=== PATIENT | male | born 1995 | race African-American/Black ===

== ENCOUNTER → 2018-07-02 | Outpatient (CLI) | payer OTHER | LOC: COL.RAD 13:36 | DX: F07.81 Postconcussional syndrome (principal) | CPT/HCPCS: A9585 ==

== ENCOUNTER → 2018-08-31 | Outpatient (CLI) | payer OTHER | LOC: COL.RAD 09:06 | DX: M75.81 Other shoulder lesions, right shoulder (principal) | CPT/HCPCS: A9585; Q9967 ==

== ENCOUNTER 2021-05-17 21:39 | Emergency (ER) | payer OTHER ==
[~2021-05-17] VITALS: Ht 182.9 cm; Wt 86.8 kg
[2021-05-17 22:12] VITALS: TEMP 98
[2021-05-17 22:38] LABS: BASO % 0.6 % (0.0-2.0); EOS % 0.3 % (0-4.0); GRAN # 3.4 (1.4-6.5); GRAN % 52.2 % (42.2-75.2); HEMATOCRIT 46.7 % (42.0-52.0); LYMPH # 1.9 (1.2-3.4); LYMPH % 29.3 % (20.0-51.0); MEAN CELL VOLUME 91 fl (80.0-100.0); MEAN CORPUSCULAR HEMOGLOBIN 31 pg (27.0-31.0); MEAN CORPUSCULAR HGB CONC 34 g/dl (33.0-37.0); MONO # 1.1 (0.1-0.6); MONO % 17.4 % (1.7-9.3); PLATELET COUNT 238 K/mm3 (130-400); RED BLOOD COUNT 5.13 M/mm3 (4.20-5.60); REDCELL DISTRIBUTION WIDTH-CV 12.4 % (11.5-14.5)
[2021-05-17 22:51] LABS: ALBUMIN 4.7 gm/dL (3.5-5.0); CALCIUM 9.3 mg/dL (8.4-10.2); CREATININE, serum 1.39 (0.66-1.25); POTASSIUM 4.2 mmol/L (3.4-5.0); TOTAL PROTEIN 8.1 gm/dL (6.4-8.2)
[2021-05-17 23:57] LABS: COLLECTION METHOD CLEAN CATCH
[2021-05-18 00:06] LABS: MUCOUS Present /lpf; PH 6 (5-8); SQUAMOUS EPITHELIAL None Seen /hpf; URINE APPEARANCE Cloudy; URINE BACTERIA None Seen /hpf; URINE BILIRUBIN Negative (NEGATIVE); URINE BLOOD Negative (NEGATIVE); URINE COLOR Yellow; URINE GLUCOSE Negative (NEGATIVE); URINE KETONE 1+ (NEGATIVE); URINE LEUKOCYTE ESTERASE Negative (NEGATIVE); URINE NITRATE Negative (NEGATIVE); URINE PROTEIN(semi-quant) 1+ (NEGATIVE); URINE RBC 0-2 /hpf; URINE UROBILINOGEN Negative (NEGATIVE)
[2021-05-18 00:50] VITALS: BP 112/65; PULSE 77
[2021-06-02] MEDS ORDERED: BENTYL 10MG10 MG/CAP PO (06:08)
== END 2021-05-18 00:50 | disposition home or self-care (01) ==
LOC: COL.ER 21:39
PROVIDERS: Nurse Practitioner
DX: R10.31 Right lower quadrant pain (principal)
CPT/HCPCS: J1885; J2405; J7030; Q9967

== ENCOUNTER → 2021-05-30 | Outpatient (CLI) | payer OTHER ==
[~2021-05-30] MED LIST: BENTYL 10MG10 MG/CAP PO; PEPCID 20MG TAB20 MG PO
== END ==
LOC: ZCOL.LAB 19:35
DX: Z01.89 Encounter for other specified special examinations (principal)

== ENCOUNTER 2021-06-02 06:40 | Day surgery (SDC) | payer OTHER ==
[~2021-06-02] VITALS: Ht 182.9 cm; Wt 85.9 kg
[~2021-06-02 06:40] MED LIST changes: -PEPCID 20MG TAB20 MG PO
[2021-06-02 07:32] VITALS: BP 129/81; PULSE 53; TEMP 97.8
[2021-06-02] MEDS ORDERED: PEPCID 20MG TAB20 MG PO (08:38)
[2021-06-02 08:40] VITALS: BP 108/86; PULSE 47; TEMP 98
--- NOTE | 2021-06-02 08:40 | NUR ---
PATIENT TRANSPORTED PER CART FROM GI SUITE TO BAY 1 ACCOMPANIED BY ENDO RN. PATIENT AMBULATED FROM CART TO CHAIR WITH 1 ASSIST. SLOW STEADY GAIT. MONITORS REAPPLIED. VSS ON ROOM AIR. PATIENT'S MOTHER IN ROOM. DR NUNES IN ROOM AND SPEAKS WITH PATIENT MOTHER AND PATIENT. STAFF RECIEVES VERBAL REPORT.
[2021-06-02 09:00] VITALS: BP 114/58; PULSE 49
--- NOTE | 2021-06-02 09:00 | NUR ---
VSS ON ROOM AIR.PATIENT TALKS WITH MOTHER AND WATCHES TV. PATIENT EATS TOAST AND DRINKS WATER WITHOUT PROBLEMS.
[2021-06-02 09:15] VITALS: BP 109/64; PULSE 44
--- NOTE | 2021-06-02 09:16 | NUR ---
VSS ON ROOM AIR. PATIENT WATCHING TV AND TALKING WITH MOTHER. DENIES DISCOMFORT AND NAUSEA. 921 IV DC'D WITH CATHETER TIP INTACT. PRESSURE AND BANDAGE APPLIED. DISCHARGE INSTRUCTIONS GIVEN VERBAL AND DISCHARGE PACKET PROVIDED. QUESTIONS ANSWERED AND PATIENT AND MOTHER VOICED UNDERSTANDING. PATIENT CHANGES INTO STREET CLOTHES. 929 PATIENT DISMISSED PER WHEEL CHAIR ACCOMPANIED BY MOTHER TO PRIVATE VECHILE DRIVEN BY SISTER.
[2021-06-02 09:25] VITALS: BP 109/72; PULSE 45
[2021-06-02 16:08] VITALS: BP 109/66; PULSE 41
== END 2021-06-02 09:33 | disposition home or self-care (01) ==
LOC: SDCO 06:40
DX: K29.30 Chronic superficial gastritis without bleeding (principal); K64.0 First degree hemorrhoids; R19.4 Change in bowel habit; K62.89 Other specified diseases of anus and rectum; Z79.899 Other long term (current) drug therapy; Z20.822 Contact with and (suspected) exposure to COVID-19
CPT/HCPCS: J2704; J3010; J7030